=== PATIENT | male | born 1995 | race Caucasian/White ===

== ENCOUNTER → 2018-05-01 | Outpatient (CLI) | payer OTHER | LOC: BMCIMAGING 10:19 | PROVIDERS: ATTEND Physician Assistant | DX: S62.633D Displaced fracture of distal phalanx of left middle finger, subsequent encounter for fracture with routine healing (principal) ==

== ENCOUNTER → 2018-05-15 | Outpatient (CLI) | payer OTHER | LOC: BMCIMAGING 14:51 | PROVIDERS: ATTEND Physician Assistant | DX: S62.650D Nondisplaced fracture of middle phalanx of right index finger, subsequent encounter for fracture with routine healing (principal) ==